=== PATIENT | female | born 1980 | race Caucasian/White ===

== ENCOUNTER → 2016-11-27 | Day surgery (SDC) | payer OTHER ==
[~2016-11-27] VITALS: Ht 152.4 cm; Wt 59.0 kg
[2016-11-27] VITALS (8 sets, daily range): BP systolic 70–104; BP diastolic 34–66; PULSE 63–100; RESP 14–16; O2SAT 95–97
[~2016-11-27] MED LIST: 0.9% Sodium Chloride 1,000 ML IV PRN; BEN50 PO; CLIN300C4 PO; CLON2TAB PO; DOCU250C7 PO; FURO80TA83 PO; GABA600T PO; HYDR10TA12 PO; LINA145C PO; LOV60 SQ; METH-313 PO; ONDA4TAB2 PO; ONDA4TAB6 PO; OXYB10TA6 PO; Ondansetron 2 mg/mL 2 mL Inj ONE; PRAM0.5T PO; PROM50VI PO; PROT40T PO; RANI150T11 PO; ROPI1TAB2 PO; Sodium Chloride LOK Flush 10 mL Syringe IV PRN; WARF7.5T4 PO; [UNRECOGNIZED DRUG - CODE] PO; fentaNYL-PF 50 mCg/mL 2 mL Inj IVPUSH PRN
--- NOTE | 2016-11-27 19:43 | ENDO ---
[address] [address] ENDOSCOPY PROCEDURE PATIENT: ANGELITO MORILLO : 1980 MR#: [id number] ADMIT: 11/27/2016 JOB ID: [id number] DATE OF PROCEDURE: 11/27/2016 PROCEDURE: Esophagogastroduodenoscopy. INDICATION: Dysphagia. The patient's ASA classification is two. Mallampati score is two. MEDICATIONS: Versed 7 mg, fentanyl 150 mcg. INSTRUMENT USED: GIFH-180J. PROCEDURE DETAILS: After informed consent was obtained, patient was brought into the GI suite, where she was placed on oxygen via nasal cannula and monitored with continuous pulse oximeter, telemetry, and blood pressure monitoring. A bite block was placed. Standard EGD scope was inserted through the bite block and advanced by direct visualization without difficulty. FINDINGS: 1. In the duodenum, the mucosa appeared atrophic. Multiple random biopsies were obtained. 2. Normal-appearing pylorus, antrum and gastric body. 3. Retroflexed views in the gastric body revealed a normal-appearing cardia and fundus. 4. Normal-appearing GE junction with a regular Z-line. 5. Normal-appearing esophagus. Secondary to patient's complaint of dysphagia, multiple random biopsies were obtained in the mid esophagus to rule out eosinophilic esophagitis. IMPRESSION: Atrophic-appearing duodenal mucosa, otherwise normal exam to second portion of duodenum. RECOMMENDATIONS: 1. Await biopsy results. 2. Follow up in GI clinic in 2-4 weeks. COMPLICATIONS: None. ESTIMATED BLOOD LOSS: Less than 5 mL cc: Alvarado Mcwilliams PA-C
--- NOTE | 2016-12-02 08:03 | PATH ---
SURGICAL PATHOLOGY Attending Physician:Jus Salazar CASE STATUS: Signed Out PATIENT NAME: ANGELITO MORILLO PID: [id number] : 1980 DATE COLLECTED:11/27/2016 00:00 SPECIMEN: 1: Duodenum, Biopsy 2: Esophagus, Biopsy CLINICAL HISTORY: 1). DUODENUM BIOPSY 2). MID ESOPHAGUS BIOPSY FINAL DIAGNOSIS: 1. Duodenum, Biopsy: Superficial portions of duodenal mucosa with no diagnostic abnormality. Negative for active inflammation, features of sprue, dysplasia, and malignancy. 2. Mid-Esophagus, Biopsy: Superficial portions of squamous epithelium with rare increased eosinophils (up to approximately 6 eosinophils per high-power field (please see comment). ICD10: K20.9 NOTE: Part 2: These histologic features are insufficient for a diagnosis of eosinophilic esophagitis. GROSS DESCRIPTION: The specimen is received in two formalin filled containers labeled with the patient's name. 1). The specimen is labeled "duodenum" and consists of 2 portions of tissue which aggregate to 0.3 x 0.3 x 0.2 CM. This estimate is entirely submitted in cassette 1A. 2). The specimen is labeled "mid esophagus" and consists of a 0.3 x 0.2 x 0.2 CM portion of tissue which is entirely submitted in cassette 2A. 11/30/2016UT ICD-9 CODES: CPT CODES: 1: 55805 2: 44382 Electronically Signed Out Norma Orozco MD [facility] Pathology [facility] [address], [place] [address] Technical component performed at [facility], [facility] [address], [place], [address]
== END | disposition home or self-care (01) ==
LOC: END 00:44
PROVIDERS: ATTEND Internal Medicine Gastroenterology
DX: K20.0 Eosinophilic esophagitis (principal); K21.9 Gastro-esophageal reflux disease without esophagitis; K31.84 Gastroparesis; E27.1 Primary adrenocortical insufficiency; I47.1 Supraventricular tachycardia; Z86.711 Personal history of pulmonary embolism; Z79.01 Long term (current) use of anticoagulants
CPT/HCPCS: 43239; 99153; G0500; J2250; J3010; J7030